=== PATIENT | male | born 1950 | race Caucasian/White ===

== ENCOUNTER 2017-03-19 09:52 | Outpatient (RCR) | payer BC ==
[~2017-03-19 09:52] MED LIST: NO HOME MEDICATIONS
== END 2017-06-17 | disposition home or self-care (01) ==
LOC: WSPT
DX: M25.612 Stiffness of left shoulder, not elsewhere classified (principal)

== ENCOUNTER 2017-09-14 14:32 | Emergency (ER) | payer BC ==
[~2017-09-14] VITALS: Ht 180.3 cm; Wt 69.1 kg
[2017-09-14 14:35] VITALS: TEMP 96.9
[2017-09-14] MEDS ORDERED: NORCO 325 MG-51 TAB PO (15:31)
[2017-09-14 15:46] VITALS: BP 153/90; PULSE 65
== END 2017-09-14 15:57 | disposition home or self-care (01) ==
LOC: COL.ER 14:32
DX: S42.022A Displaced fracture of shaft of left clavicle, initial encounter for closed fracture (principal); S76.011A Strain of muscle, fascia and tendon of right hip, initial encounter; R40.2412 Glasgow coma scale score 13-15, at arrival to emergency department; W10.0XXA Fall (on)(from) escalator, initial encounter; W10.9XXA Fall (on) (from) unspecified stairs and steps, initial encounter
CPT/HCPCS: J1170

== ENCOUNTER 2017-12-18 14:15 | Outpatient (RCR) | payer BC ==
[~2017-12-18 14:15] MED LIST changes: +NORCO 325 MG-51 TAB PO
== END 2017-12-18 14:55 | disposition home or self-care (01) ==
LOC: WSC 14:15
DX: S42.002D Fracture of unspecified part of left clavicle, subsequent encounter for fracture with routine healing (principal)

== ENCOUNTER → 2019-06-01 | Outpatient (CLI) | payer BC | LOC: ZCOL.LAB 18:03 | DX: L02.31 Cutaneous abscess of buttock (principal) ==

== ENCOUNTER → 2020-06-03 | Outpatient (CLI) | payer MEDICARE, BC | LOC: COL.RAD 13:08 | DX: N28.1 Cyst of kidney, acquired (principal) ==

== ENCOUNTER 2021-01-05 09:15 | Outpatient (RCR) | payer MEDICARE, BC | END 2021-01-29 | disposition home or self-care (01) | LOC: PT.GENESIS | DX: M79.18 Myalgia, other site (principal) ==